=== PATIENT | female | born 1985 | race Two or more races ===

== ENCOUNTER 2017-06-24 09:16 | Inpatient (IN) | payer MEDICAID ==
[2017-06-24] MEDS ORDERED: LIDOCAINE 1% (MPF) 30 ML INJ INJ (10:30)
[2017-06-24] MEDS ORDERED: CARBOPROST 250 MCG INJ IM (10:30)
[2017-06-24] MEDS ORDERED: MISOPROSTOL 200 MCG TAB PR (10:30)
[2017-06-24] MEDS ORDERED: BUTORPHANOL 2 MG INJ IV (10:30)
[2017-06-24] MEDS ORDERED: OXYTOCIN 30 UNITS/LR 500 ML IV ×2 (10:30)
[2017-06-24] MEDS ORDERED: METHYLERGONOVINE 0.2 MG INJ IM (10:30)
[2017-06-24 10:56] LABS: WHITE BLOOD COUNT 11.4 10^3/ul (4.8-10.8)
[2017-06-24 10:56] LABS: ABNORMAL IP MESSAGE 1; ADD MAN DIFF? NO; BASOPHILS % 0.3 % (0.0-2.0); EOSINOPHILS # 0.1 10^3/ul (0.0-0.5); EOSINOPHILS % 0.6 % (0.0-7.0); HEMATOCRIT 40.5 % (37.0-47.0); HEMOGLOBIN 13.8 g/dl (12.0-16.0); LYMPHOCYTES # 2.8 10^3/ul (0.8-2.9); LYMPHOCYTES % 24.6 % (15.0-51.0); MEAN CORPUSCULAR HEMOGLOBIN 30.9 pg (29.0-33.0); MEAN CORPUSCULAR HGB CONC 34.1 g/dl (32.0-37.0); MEAN CORPUSCULAR VOLUME 90.8 fl (82.0-101.0); MEAN PLATELET VOLUME 13.3 fl (7.4-10.4); MONOCYTE # 0.9 10^3/ul (0.3-0.9); MONOCYTES % 7.6 % (0.0-11.0); NEUTROPHIL # 7.6 10^3/ul (1.6-7.5); NEUTROPHILS % 66.3 % (39.0-77.0); PLATELET COUNT 152 10^3/UL (140-415); RED BLOOD COUNT 4.46 10^6/ul (4.20-5.40)
[2017-06-24] MEDS: LACTATED RINGER'S 1,000 ML IV ×3 (10:56→19:57)
[2017-06-24 10:58] LABS: POSITIVE DIFF @See below
[2017-06-24 11:14] LABS: PROTIME 12.2 Sec (11.9-14.9)
[2017-06-24 11:15] LABS: PARTIAL THROMBOPLASTIN TIME 29.4 Sec (25.0-35.0)
[2017-06-24] MEDS ORDERED: MINERAL OIL LIGHT 10 ML VIAL TOP (11:30)
[2017-06-24 13:38] LABS: HEPATITIS B SURFACE ANTIGEN NEGATIVE (NEGATIVE)
[2017-06-24] MEDS: DINOPROSTONE 10 MG VAG SUPP VAG (13:46)
[2017-06-24] MEDS ORDERED: FENTAnyl 2MCG/ML-ROPIV 0.2% 100 ML (20:08)
[2017-06-24] MEDS ORDERED: NALOXONE (0.4 MG/ML) INJ IV (21:00)
[2017-06-24 22:41] LABS: RAPID PLASMA REAGIN NONREACTIVE (NR)
[2017-06-25] MEDS: LACTATED RINGER'S 1,000 ML IV ×5 (00:14→16:47)
[2017-06-25] MEDS: OXYTOCIN 30 UNITS/LR 500 ML IV ×2 (02:52→09:53)
[2017-06-25] MEDS: FENTAnyl 2MCG/ML-ROPIV 0.2% 100 ML BAG EPI (03:55)
[2017-06-25] MEDS ORDERED: CEFAZOLIN 2 GM/50 ML (PMX) 50 ML IV (06:30)
[2017-06-25] MEDS ORDERED: METOCLOPRAMIDE 10 MG INJ (07:36)
[2017-06-25] MEDS ORDERED: OXYTOCIN 30 UNITS/LR 500 ML IV (07:36)
[2017-06-25] MEDS ORDERED: ONDANSETRON 4 MG INJ (07:36)
[2017-06-25] MEDS ORDERED: morphine SULFATE/PF (10 MG/10 ML) INJ (07:36)
[2017-06-25] MEDS ORDERED: OXYTOCIN 10 UNIT INJ ×2 (07:36→08:32)
[2017-06-25] MEDS ORDERED: EPHEDrine SULFATE 50 MG/5 ML SYG (07:36)
[2017-06-25] MEDS ORDERED: LIDOCAINE 1.5%/EPI MPF (SDV) 30 ML VIAL (07:37)
[2017-06-25] MEDS ORDERED: MISOPROSTOL 200 MCG TAB PR (08:00)
[2017-06-25] MEDS ORDERED: NA PHOSPHATE/BIPHOS 133 ML ENEMA PR (08:00)
[2017-06-25] MEDS ORDERED: LANOLIN 7 GM TUBE TOP (08:00)
[2017-06-25 08:38] LABS: CBV Base Excess -3.7 mmol/L; CBV COHb 1.1 %; CBV Oxygen Sat 48.6 mmHG; CBV Total Hemglobin 16.6 g/dl; Cord Blood Venous AADO2 78.6 mmHg; Cord Blood Venous pO2 22.2 mmHG (15.0-45.0); Fraction OxyHgb Cord Venous 47.4 %; MODE ROOM AIR; MetHgb Cord Venous 1.4 %; Sample Type CBV; Site CORD
[2017-06-25] MEDS ORDERED: ONDANSETRON 4 MG INJ IV (09:00)
[2017-06-25] MEDS ORDERED: DIPHENHYDRAMINE 50 MG INJ IV (09:00)
[2017-06-25] MEDS: SENNA/DOCUSATE NA (8.6MG/50MG) TAB PO ×2 (09:00→21:00)
[2017-06-25] MEDS ORDERED: EPHEDrine SULFATE 50 MG/5 ML SYG IV (09:00)
[2017-06-25] MEDS ORDERED: NALOXONE (0.4 MG/ML) INJ IV (09:00)
[2017-06-25] MEDS ORDERED: morphine 2 MG INJ IV (09:00)
[2017-06-25] MEDS: morphine SULFATE/PF (10 MG/10 ML) INJ SPINAL (09:00)
[2017-06-25] MEDS: morphine 2 MG INJ IV (09:54)
[2017-06-25] MEDS: IBUPROFEN 600 MG TAB PO (12:00)
[2017-06-25] MEDS: PIPER-TAZO 3.375 GM IV (PMX) 100 ML IVPB ×3 (12:41→23:53)
[2017-06-25] MEDS: KETOROLAC 30 MG INJ IV ×2 (13:58→21:13)
[2017-06-26] MEDS: LACTATED RINGER'S 1,000 ML IV (02:17)
[2017-06-26] MEDS: PIPER-TAZO 3.375 GM IV (PMX) 100 ML IVPB ×4 (05:39→23:42)
[2017-06-26] MEDS: KETOROLAC 30 MG INJ IV (05:46)
[2017-06-26 08:56] LABS: AADO2 Arterial 77.2 mmHg (7.0-24.0); Arterial Base Excess -5.6 mmol/L (-3.0-3); Arterial COHb 0.4 % (0.0-3.0); Arterial Fraction of Oxyhgb 13.3 % (93.0-99.0); Arterial MetHb 2.4 % (0.0-1.5); Arterial Total Hemglobin 15.7 g/dl (12.0-18.0); MODE ROOM AIR; Sample Type CBA; Site CORD
[2017-06-26] MEDS: SENNA/DOCUSATE NA (8.6MG/50MG) TAB PO ×2 (09:22→20:55)
[2017-06-26] MEDS: OXYCODONE/ACETAMINOPHEN (5/325) TAB PO ×4 (09:22→23:42)
[2017-06-26 10:57] LABS: ADD MAN DIFF? NO
[2017-06-26 10:59] LABS: WHITE BLOOD COUNT 14.9 10^3/ul (4.8-10.8)
[2017-06-26 10:59] LABS: BASOPHILS % 0.2 % (0.0-2.0); EOSINOPHILS # 0.2 10^3/ul (0.0-0.5); EOSINOPHILS % 1.5 % (0.0-7.0); HEMOGLOBIN 9.7 g/dl (12.0-16.0); LYMPHOCYTES # 1.9 10^3/ul (0.8-2.9); LYMPHOCYTES % 12.4 % (15.0-51.0); MEAN CORPUSCULAR HEMOGLOBIN 31.5 pg (29.0-33.0); MEAN CORPUSCULAR HGB CONC 34.6 g/dl (32.0-37.0); MEAN CORPUSCULAR VOLUME 90.9 fl (82.0-101.0); MEAN PLATELET VOLUME 12.7 fl (7.4-10.4); MONOCYTE # 0.9 10^3/ul (0.3-0.9); NEUTROPHIL # 11.8 10^3/ul (1.6-7.5); NEUTROPHILS % 79.2 % (39.0-77.0); PLATELET COUNT 126 10^3/UL (140-415); RED BLOOD COUNT 3.08 10^6/ul (4.20-5.40); RED CELL DISTRIBUTION WIDTH 14.6 % (11.5-14.5)
[2017-06-26] MEDS: IBUPROFEN 600 MG TAB PO ×2 (12:16→18:11)
[2017-06-27] MEDS: OXYCODONE/ACETAMINOPHEN (5/325) TAB PO ×4 (04:52→20:16)
[2017-06-27] MEDS: PIPER-TAZO 3.375 GM IV (PMX) 100 ML IVPB (06:04)
[2017-06-27] MEDS: IBUPROFEN 600 MG TAB PO ×5 (06:04→23:51)
[2017-06-27] MEDS: SENNA/DOCUSATE NA (8.6MG/50MG) TAB PO ×2 (09:04→20:15)
[2017-06-28] MEDS: IBUPROFEN 600 MG TAB PO ×2 (05:24→11:27)
[2017-06-28] MEDS: MEASLES,MUMPS,RUBELLA VACCINE INJ SC* (09:00)
[2017-06-28] MEDS: SENNA/DOCUSATE NA (8.6MG/50MG) TAB PO (09:46)
[2017-06-28] MEDS: DIPHTH/TET/ACEL PERTUSS (ADULT) 0.5 ML VIAL IM* (10:14)
[2017-06-28] MEDS: OXYCODONE/ACETAMINOPHEN (5/325) TAB PO (14:04)
== END 2017-06-28 14:57 | disposition home or self-care (01) | DRG 766 ==
LOC: L-D 09:16 → PP1 06-25 11:45
PROVIDERS: Specialist
PROC: 10D00Z1 Extraction of Products of Conception, Low, Open Approach (ICD-10-PCS; principal; 2017-06-25 07:30)
PROC: 0UT70ZZ Resection of Bilateral Fallopian Tubes, Open Approach (ICD-10-PCS; 2017-06-25 07:30)
PROC: 3E033VJ Introduction of Other Hormone into Peripheral Vein, Percutaneous Approach (ICD-10-PCS; 2017-06-25 07:30)
DX: O99.214 Obesity complicating childbirth (principal); E66.9 Obesity, unspecified; Z68.34 Body mass index [BMI] 34.0-34.9, adult; O62.0 Primary inadequate contractions; O76 Abnormality in fetal heart rate and rhythm complicating labor and delivery; Z30.2 Encounter for sterilization; Z3A.38 38 weeks gestation of pregnancy; Z37.0 Single live birth
CPT/HCPCS: 36415; 36600; 62319; 76815; 82803; 85025; 85610; 85730; 86592; 86900; 86901; 87340; 88302; 88305; 90715; 99464